=== PATIENT | male | born 1965 | race Caucasian/White ===

== ENCOUNTER 2020-04-12 12:31 | Outpatient (NON) | payer OTHER, SELFPAY ==
[2020-04-12 22:47] LABS: SARS-CoV-2 RNA PCR Positive
== END 2020-04-12 12:32 ==
PROVIDERS: PCP Family Medicine; Visit Provider Nurse Practitioner Family
DX: U07.1 COVID-19 (principal)
CPT/HCPCS: C9803; U0003; U0005

== ENCOUNTER 2024-08-19 01:39 | Day surgery (SDC) | payer OTHER, SELFPAY ==
[2024-08-11 13:04] VITALS: BMI 34.0
--- OUTSIDE RECORDS SUMMARY | 2024-08-19 01:42 | XMS_ITS | Data Portability ---
Author Organization [facility] [employer], Main Office Address [address] [place] [address] Assessment No assessment recorded. Plan of Treatment Reminders Order Date Submit Date Provider Last Modified By Organization Details Last Modified Time Details Appointments New Patient 15 2024 02:15P Steve Benoit MD Not available Not available Not available Lab rapid flu (A+B) 2024 025 [facility], [address] [place], [address], 05/17/2024 11:11:25 PSA, serum or plasma [address] - Outpatient Lab, [address] [place], [address], 04/26/2024 08:11:01 Referral otolaryng ologist referral - Please call patient to schedule an appointme nt. Thank you. 2024 025 GAYATHRI Benoit MD, [address], [place], [address], 06/24/2024 10:15:29 gastroent erologist referral - Please call patient to schedule an appointme nt. Thank you. [email or web address] [place] [address] Gastroenterol ogy, [address], [place], [address], 05/19/2024 09:03:34 dermatolo gist referral - Please call patient to schedule an appointme nt. Thank you. 01/21/ 2025 01/21/2 025 [email or web address] [facility], [address] [place] [address] , [place], [address], 05/17/2024 08:56:28 Procedures None recorded. Surgeries None recorded. Imaging None recorded. Medication Orders amoxicill in 875 mg-potass ium clavulana te 125 mg tablet 2024 025 [facility], [address], [place], [address], 06/24/2024 09:20:29 Medrol (Abdifatah) 4 mg tablets in a dose pack 2024 025 [facility], [address], [place], [address], 06/24/2024 09:20:29 amoxicill in 875 mg-potass ium clavulana te 125 mg tablet [address]/Pharmacy [facility]2713, [address], [place], [address], 06/24/2024 09:03:56 benzonata te 200 mg capsule [address]/Pharmacy [facility]2713, [address], [place], [address], 06/24/2024 09:03:53 Medrol (Abdifatah) 4 mg tablets in a dose pack [address]/Pharmacy [facility]2713, [address], [place], [address], 06/24/2024 09:03:47 amoxicill in 875 mg-potass ium clavulana te 125 mg tablet [address]/Pharmacy [facility]2713, [address], [place], [address], 06/24/2024 09:03:56 Patient TargetsNo targets recorded. Patient InstructionsNo instructions recorded. Reason for Referral Morgue Keeper Referral for S kin lesion Please call patient to schedule an appointment. Thank you. Referring Physician: Nitza López [facility], Encounter Date: 04/19/2024 Baseball Inspector Referral for Screening for malignant neoplasm of colon Please call patient to schedule an appointment. Thank you. Referring Physician: Nitza López [facility], Encounter Date: 04/19/2024 Parts Manager Referral fo r Lesion of tongue Please call patient to schedule an appointment. Thank you. Referring Physician: Nitza López [facility], Encounter Date: 06/24/2024 Results Created Date Observation Date Name Description Value Unit Range Abnormal Flag Note LastModifiedBy Organization Detail LastModifiedTime 05/20/1905/20/2022 TSH thyroid-stim ulating hormone 0.696 uIU/m L 0.465- 4.680 Not Available [facility] (Lab) [address] [place], [address], 05/20/2022 14:25:43 05/20/1905/20/2022 PSA, TOTAL PSA, total 0.36 NG/mL 0.00-4 .00 Not Available [facility] (Lab) [address] [place], [address], 05/20/2022 14:25:42 05/20/1905/20/2022 LIPID PANEL cholesterol 187 mg/dL 140-19 9 NIH RANDOLPH NSUS RECOM MENDA TION FOR TOMY STERO L: ADULT CHILD LOW RISK: <200 <170 BORDE RLINE : <200- 239 ----- HIGH RISK: >240 >200 Not Available [facility] (Lab) [address] [place], [address], 05/20/2022 13:49:26 05/20/1905/20/2022 LIPID PANEL triglyceride s 148 mg/dL 0-150 NIH RANDOLPH NSUS REPOR T RECOM MENDA TION FOR TRIGL YCERI CHEN: ADULT CHILD LOW RISK: <150 ----- BODER LINE: 150-1 99 ----- HIGH RISK: >200 ----- Not Available [facility] (Lab) [address] [place], [address], 05/20/2022 13:49:26 05/20/19 23 05/20/2022 LIPID PANEL HDL cholesterol 47 mg/dL 40- Not Available [facility] (Lab) [address] [place], [address], 05/20/2022 13:49:26 05/20/1905/20/2022 LIPID PANEL LDL cholesterol, calculated 110 mg/dL 0-130 NIH RANDOLPH NSUS REPOR T RECOM MENDA TIONS FOR LDL: ADULT CHILD LOW RISK <130 <110 (OPTI MAL LDL) <100 ----- MICHELE RLINE : 130-1 59 ----- HIGH RISK: >160 >130 A TRIGL YCERI DE RESUL T >400 INVAL IDATE S THE CALCU LATIO N FOR LDL FRACT IONAT ION - THE LDL RESUL T WILL NOT BE REPOR CONRAD. Not Available [facility] (Lab) [address] [place], [address], 05/20/2022 13:49:26 05/17/19 25 05/17/2024 rapid flu (A+B) Flu A negati ve Not Available [address], [address], 05/17/2024 10:07:55 05/17/19 25 05/17/2024 rapid flu (A+B) Flu B negati ve Not Available [address], [address], 05/17/2024 10:07:55 Result Notes None recorded. Problems Name Problem SNOMED Code Status Onset Date Resolution Date Notes Provider Name and Address Organization Details Recorded Time Acute sinusitis 75002675 Completed 04/19/[address], [place], [address] , [employer] 5 08:57:19 Pain in throat 229339155 Active Not Available [facility] 3 08:22:23 Steatotic liver disease 361559200 Active 2019 Not Available [employer] 3 08:22:24 Fluid level behind tympanic membrane Completed 04/19/2024 ARIANNA Gao [address], [address], [place], [address] , [employer] 5 08:57:35 Headache 60885101 Completed 04/19/2024 ARIANNA Gao [address], [address], [place], [address] , [employer] 5 08:58:28 Gastroente ritis 41017970 Completed 04/19/2024 ARIANNA Gao [address], [address], [place], [address] , [employer] 5 08:57:40 Change in voice 389291263 Completed 202104/19/2024 ARIANNA Gao [address], [address], [place], [address] , [employer] 5 08:57:27 Pruritic disorder 336784209 Active 2019 Not Available [employer] 3 08:22:24 Syncope and collapse 402688537 Active Not Available [employer] 3 08:22:24 Bronchitis 18374016 Completed 202104/19/[address], [place], [address] , [employer] 5 08:57:23 Depressive disorder 18924305 Active Not Available [employer] 3 08:22:24 Sinusitis 33882546 Completed 04/19/[address], [place], [address] , [employer] [facility] [facility] 5 08:59:01 Fever 630176716 Completed 04/19/[address], [place], [address] , [employer] [facility] 5 08:58:22 Obesity 187601021 Active 2021 Not Available [facility] 3 08:22:25 Cough 31451816 Completed 04/19/[address], [place], [address] , [employer] [facility] 5 10:07:52 Upper respirator y infection 91695904 Completed 04/19/[address], [place], [address] , [employer] [facility] 5 08:58:59 Posterior rhinorrhea 06109175 Active Not Available [facility] 3 08:22:25 Fatigue 74910535 Completed 04/19/[address], [place], [address] , [employer] [facility] 5 08:58:17 Acute bacterial sinusitis 22112856 Active [address], [place], [address] , [employer] [facility] 5 08:53:08 Skin lesion 08848311 Active [address], [place], [address] , [facility] 5 08:54:57 Cough 76582637 Active 2024 ARIANNA Gao [address], [address], [place], [address] , [facility] [employer] [facility] [employer] [facility] 5 10:07:52 Viral upper respirator y tract infection 619794746 Active 2024 ARIANNA Gao [address] [facility], [address], [place], [address] , [facility] [employer] [facility] 5 10:08:06 Acute left otitis media 773195307 Active 2024 ARIANNA Gao [address] [facility], [address], [place], [address] , [facility] [employer] [facility] 5 10:08:43 Lesion of tongue 081172272 Active 2024 ARIANNA Gao [address] [facility], [place] [address], [place], [address] , [facility] [employer] [facility] 5 09:25:01 Essential hypertensi on 99481528 Active 2024 ARIANNA Gao [address] [facility], [place] [address], [place], [address] , [facility] [employer] [facility] 5 09:28:27 Problem Notes None recorded. Medical Equipment None Reported. Allergies No known drug allergies Medications Name Sig Start Date Stop Date Status Note LastModified by Organization Details LastModified Time cyclobenzap rine 10 mg tablet Take 1 tablet 3 times a day by oral route. active Not Available Not Available No t Available prednisone 10 mg tablet Take 1 tablet every day by oral route as directed for 7 days. active Not Available Not Available No t Available ipratropium 0.5 mg-albutero l 3 mg (2.5 mg base)/3 mL nebulizatio n soln Inhale 3 mL 4 times a day by nebulizat ion route as needed for 5 days. active Not Available Not Available No t Available azithromyci n 250 mg tablet TAKE 2 TABLETS BY MOUTH TODAY, THEN TAKE 1 TABLET DAILY FOR 4 DAYS 07/31 completed Not Available Not Available Not Available benzonatate 200 mg capsule TAKE 1 CAPSULE BY MOUTH EVERY 8 HOURS NEEDED FOR 7 DAYS 06/24 completed Not Available Not Available Not Available Celestone Soluspan 6 mg/mL suspension for injection active nd#: 0517- 0720- 01 Not Available Not Available Not Available Pyridium 200 mg tablet Take 1 tablet 3 times a day by oral route. 03/02 completed Not Available Not Available Not Available sulfamethox azole 800 mg-trimetho prim 160 mg tablet TAKE 1 TABLET BY MOUTH EVERY 12 HOURS 02/26 completed Not Available Not Available Not Available hydrocodone 10 mg-acetamin ophen 325 mg tablet TAKE 1 TABLET BY MOUTH EVERY 4 HOURS 03/02 completed Not Available Not Available Not Available ondansetron 8 mg disintegrat ing tablet DISSOLVE 1 T ON THE TONGUE Q 8 H PRN FOR 2 DAYS 07/05 completed Not Available Not Available Not Available amoxicillin 875 mg tablet Take 1 tablet every 12 hours by oral route for 10 days. active Not Available Not Available No t Available benzonatate 100 mg capsule Take 1 capsule every 4-6 hours by oral route as directed for 15 days. 08/18 completed Not Available Not Available Not Available cyanocobala min (vit B-12) 1,000 mcg/mL injection solution Inject 1 mL every month by intramusc ular route[facility]#: [id number]- 25 Not Available Not Available Not Available oseltamivir 75 mg capsule Take 1 capsule every day by oral route for 7 days. 11/02 completed Not Available Not Available Not Available diclofenac sodium 75 mg tablet,arely yed release Take 1 tablet twice a day by oral route. active Not Available Not Available No t Available hydroxyzine HCl 25 mg tablet TAKE 1 TABLET BY MOUTH EVERY 6 TO 8 HOURS NEEDED FOR ITCHING 07/31 completed Not Available Not Available Not Available ceftriaxone 500 mg solution for injection active ndc#: 0409- 7338- 01 Not Available Not Available Not Available levofloxaci n 500 mg tablet TAKE 1 TABLET BY MOUTH EVERY DAY 02/10 completed Not Available Not Available Not Available methylpredn isolone 4 mg tablets in a dose pack TAKE 6 TABLETS ON DAY 1 DIRECTED ON PACKAGE AND DECREASE BY 1 TAB EACH DAY FOR A TOTAL OF 6 DAYS active Not Available Not Available No t Available clobetasol 0.05 % scalp solution APPLY TO THE AFFECTED SCALP AREA BY TOPICAL ROUTE 2 TIMES PER DAY IN THE MORNING AND EVENING 06/14 completed Not Available Not Available Not Available fluticasone propionate 50 mcg/actuati on nasal spray,suspe nsion USE 1 SPRAY IN EACH NOSTRIL DAILY 10/12 completed Not Available Not Available Not Available amoxicillin 875 mg-potassiu m clavulanate 125 mg tablet TAKE 1 TABLET BY MOUTH EVERY 12 HOURS FOR 10 DAYS active Not Available Not Available No t Available amoxicillin 500 mg-potassiu m clavulanate 125 mg tablet TAKE 1 TABLET BY MOUTH TWICE A DAY FOR 10 DAYS 07/31 completed Not Available Not Available Not Available neomycin 3.5 mg/g-polymy heather B 10,000 unit/g-dexa meth 0.1 % eye oint APPLY TO AFFECTED EYE BID FOR 10 DAYS UTD 08/18 completed Not Available Not Available Not Available escitalopra m 10 mg tablet TK ONE T PO QD 07/05 completed Not Available Not Available Not Available Lexapro 20 mg tablet Take 1 tablet every day by oral route for 30 days. 02/20 completed Not Available Not Available Not Available Sudafed 12 hour 02/26 completed OTC Not Available Not Available Not Available Mucinex 02/26 completed OTC Not Available Not Available Not Available ProAir HFA 90 mcg/actuati on aerosol inhaler Inhale 2 puffs every 4 hours by inhalatio n route as needed. active Not Available Not Available No t Available Suprep Bowel Prep Kit 17.5 gram-3.13 gram-1.6 gram oral solution 10/12 completed Not Available Not Available Not Available [facility] 24 hr 02/26 completed OTC Not Available Not Available Not Available Fluvirin 3871-8091 45 mcg (15 mcg x 3)/0.5 mL intramuscul ar suspension active Not Available Not Available N ot Available Vitals Date Recorded Body mass index (BMI) Body height Oxygen saturation Oxygen saturation in Arterial blood by Pulse oximetry Heart rate Respiratory rate Body temperature Body weight Systolic blood pressure Diastolic blood pressure Provider Name and Address Organization Details Last Updated DateTime 3 32.6 kg/m2 182.88 cm 97 % 97 % 69 /min 16 /min 96.7 [degF] 229135. 96 g 139 mm[Hg] 97 mm[Hg] Not Available [facility] 3 08:21:35 Date Recorded Body weight Body mass index (BMI) Body height Body temperature Heart rate Respiratory rate Oxygen saturation Oxygen saturation in Arterial blood by Pulse oximetry Systolic blood pressure Diastolic blood pressure Provider Name and Address Organization Details Last Updated DateTime 5 842517. 81 g 35.4 kg/m2 180.34 cm 97.1 [degF] 69 /min 20 /min 99 % 99 % 140 mm[Hg] 78 mm[Hg] Maribel Ang RN [facility] [employer] [facility] 5 08:44:23 Date Recorded Body height Body mass index (BMI) Body weight Body temperature Heart rate Respiratory rate Oxygen saturation Oxygen saturation in Arterial blood by Pulse oximetry Provider Name and Address Organization Details Last Updated DateTime 5 180.34 cm 35.6 kg/m2 426353. 1 g 97.2 [degF] 91 /min 20 /min 97 % 97 % Maribel Ang RN [facility] [employer] [facility] 5 09:54:00 Date Recorded Body height Body mass index (BMI) Body weight Body temperature Heart rate Respiratory rate Oxygen saturation Oxygen saturation in Arterial blood by Pulse oximetry Systolic blood pressure Diastolic blood pressure Provider Name and Address Organization Details Last Updated DateTime 5 180.34 cm 36.4 kg/m2 653410. 31 g 97.2 [degF] 78 /min 20 /min 98 % 98 % 174 mm[Hg] 80 mm[Hg] Maribel Ang RN [facility] [employer] [facility] 5 09:07:42 Social History Question Answer Notes LastModified by Organizat ion Details LastModified Time Tobacco Smoking Status Former Smoker Not Available [facility] 05/28/2022 08:18:12 Do You Have An Advance Directive? No Information not available 04/19/2024 Is Blood Transfusion Acceptable In An Emergency? Yes Information not available 04/19/2024 What Is Your Level Of Caffeine Consumption? Moderate [id number] Information not available 05/28/2022 What Is Your Code Status? Full Code Information not available 04/19/2024 In The 14 Days Before Symptom Onset, Have You Had Close Contact With A Laboratory-confi rmed COVID-19 While That Case Was Ill? No [id number] Information not available 05/28/2022 In The 14 Days Before Symptom Onset, Have You Had Close Contact With A Person Who Is Under Investigation For COVID-19 While That Person Was Ill? No [id number] Information not available 05/28/2022 What Type Of Diet Are You Following? REGULAR [id number].[id number] [id number] Information not available 05/28/2022 What Is The Highest Grade Or Level Of School You Have Completed Or The Highest Degree You Have Received? HK88400-0 [id number] Information not available 05/28/2022 Have There Been Any Changes To Your Family Or Social Situation? No [id number] Information not available 05/28/2022 When Did You Quit Smoking? 16+yearssincelastc igarette [id number].[id number] Information not available 05/28/2022 Are There Any Guns Present In Your Home? No [id number].[id number] Information not available 05/28/2022 Where Do You Live? [facility] [id number].54941 [id number] Information not available 05/28/2022 Do You Have A Medical Power Of Senior Escrow Officer? No Information not available 04/19/2024 How Many Children Do You Have? 1 Information not available 04/19/2024 Do You Have Any Pets? Yes [id number] Information not available 05/28/2022 What Is Your Relationship Status? MIGRATION.[id number] Information not available 05/28/2022 Do You Use Your Seat Belt Or Car Seat Routinely? Yes Information not available 04/19/2024 Do You Have Smoke And Carbon Monoxide Detectors In Your Home? Yes [id number].78143 [id number] Information not available 05/28/2022 Are There Any Smokers In Your House? No MIGRATION.70670 [id number] Information not available 05/28/2022 Do You Participate In Social Media? Yes Information not available 04/19/2024 Do You Use Sunscreen Routinely? Yes MIGRATION.27586 [id number] Information not available 05/28/2022 Have You Recently Traveled Abroad? No Information not available 05/17/2024 Do You Have Any Dietary Restrictions? No MIGRATION.49735 [id number] Information not available 05/28/2022 Sex: Male Functional Status Question Answer Note LastModified by Organizat ion Details LastModified Time What is your level of alcohol consumption? 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 Occasional [id number] Information not available 05/28/2022 Mental Status Question Answer Note LastModified by Organizat ion Details LastModified Time Do you feel stressed (tense, restless, nervous, or anxious, or unable to sleep at night)? ML0302-0 [id number] Information not available 05/28/2022 Family History Relationship Description Onset Age of this Age Resolved Age Notes LastModified by Organization Details LastModified Time Father No current problems or disability Not available 04/19 08:44:34 Mother No current problems or disability Not available 04/19 08:44:34 Medical History Condition Response CANCER: SPECIFY Y ALLERGIES/HAYFEVER Y Immunizations Vaccine Type Date Status Note Provider Nam e and Address Organization Details Recorded Time Influenza, split virus, trivalent, preservative 3 completed Not Available [facility] 05/28/2022 08:26:37 DTaP, unspecified formulation 1 completed Not Available [facility] 05/28/2022 08:26:37 MMR 5 completed Not Available [facility] 05/28/2022 08:26:37 Tdap 3 completed Not Available [facility] 05/28/2022 08:26:37 Influenza, split virus, quadrivalent, PF 9 completed Not Available [facility] 05/28/2022 08:26:37 Past Encounters Encounter ID Performer Location Encounter Start Date Encounter Closed Date Diagnosis/Indication Diagnosis SNOMED-CT Code Diagnosis ICD10 Code Diagnosis Note [id number] Perry Ugalde MD [facility] [address] [address] 07/31/2021 00:00:00 07/31/2021 14:01:05 [id number] Perry Ugalde MD [address] [address] 03/10/2022 00:00:00 03/10/2022 10:55:01 [id number] Perry Ugalde MD [address] [address] 04/15/2022 00:00:00 04/15/2022 08:41:10 [id number] Perry Ugalde MD [address] [address] 05/20/2022 00:00:00 05/20/2022 08:32:24 [id number] Perry Ugalde MD [address] [address] 04/19/2024 08:35:36 04/19/2024 09:04:35 Acute bacterial sinusitis 04257862 J01.90 x 2 months Skin lesion 79541102 L98 .9 2x1 cm, scabbing with erythema. Present x 2-3 years Adult [facility] th examination 729195153 Z00.00 Patient is overall healthy.He alth maintenanc e reviewedDi scussed diet/exerc isePatient questions answered Screening for malignant neoplasm of prostate 539456685 Z12.5 Screening for malignant neoplasm of colon 188450683 Z12.11 [id number] Perry Ugalde MD [address] [address] 05/03/2024 08:25:14 05/12/2024 16:09:59 [id number] Perry Ugalde MD [address] [address] 05/17/2024 09:40:50 05/17/2024 10:11:31 Cough 03564753 R05.9 Viral uppe r respiratory tract infection 966671006 J06.9 advised to continue antihistam ine, nasal spray, ibuprofen, tylenol, Mucinex DM, increase water intake Acute left otitis media 074997383 H66.92 [id number] Perry Ugalde MD [facility] [address] [place] [address] 06/24/2024 08:53:56 06/24/2024 09:37:45 Acute bacterial sinusitis 41803163 J01.90 x 2 months, resolved then returned Lesion of tongue 5474467 05 K14.9 small, had recent basal cell carcinoma removed from his right cheek, fears they are related Health Concerns Section Related Observation LastModified by Organization Detai ls LastModified Time None Recorded Concern Status LastModified by Organization Details LastModified Time None Recorded Advance Directives Directive N: Payers Encounter Date Sequence Insurance Name Policy Number Policy Graves Covered Member ID Graves Member ID Guarantor Name 04/19/2024 1 [place] [id number] Rosette E Stamper [id number] Manny Rosales Stamper 05/03/[address] [facility] [id number] Rosette E Stamper [id number] Manny L Stamper 05/17/2024 [address] [place] [id number] Rosette E Stamper [id number] Manny L Stamper 06/24/[address] [facility] [id number] Rosette E Stamper [id number] Manny L Stamper Notes Date Note Type Note Provider Name and Address Organization Details Recorded Time 04/19/2024 text/html Manny Logan i s a 58 year old male patient here today for an wellness visit He is overall healthy. He has concerns with a possible sinus infection. Symptoms began 2 months ago. States he does utilize flonase and Zyrtec.Does all believe he is allergic to his cats.Does admits to fevers over this weekend, now having a bad headache. Has concerns with a lesion on the right side of his face, below his ear, 2x1 cm Has a history of prostates surgery green-light procedure Had annual labs through work, will bring us the results Flu shot: declinesCOVID vaccines:x1 dap: 05/20/2022olonosco py: 2019, polyps found, did at [facility] ordered today Nitza López, ARIANNA [address] [facility], [facility] [address], [place], [address], [facility] [employer] 04/19/2024 09:45:06 05/17/2024 text/html Manny Logan i s a 58 year old male patient here today for a sick visit Sick x 4 days, last night was the worse. Fever, headache, body aches, cough, ROSETTA ear pain, sinus congestion, bloody nasal dischargeHas been taking Ibuprofen, Mucinex and sudafed. ARIANNA Gao [address] [facility], [address], [place], [address], [employer] 05/17/2024 10:13:41 06/24/2024 text/html Manny Logan i s a 58 year old male patient here today for a sick visit Sick x 1 month, Fever, headache, body aches, cough, ROSETTA ear pain, sinus congestion, bloody nasal dischargeHas been taking Ibuprofen, Mucinex and sudafed.Completed 7 day augmentin and medrol dose pack and felt this was effective but symptoms returned after completion. Concerns with a lesion on the right side of his tongue. Notes that he had a basal cell carcinoma removed from his right cheek and he is worried these are connected. [facility] [address] [facility] [address], [place], [address], [place] 06/24/2024 09:36:28
--- OUTSIDE RECORDS SUMMARY | 2024-08-19 01:42 | XMS_ITS | CONTINUITY OF CARE DOCUMENT ---
Author Name angelic joejaime Address Unknown Organization [facility] Address [address] [address] [place] [address] Phone [phone] Care Team Providers Care Truck Rental Clerk Name Role Phone Demetri Odom MD Unavailable [phone] LICO BAUTISTA MD Unavailable [phone] LICO BAUTISTA MD Unavailable PROBLEMS Condition Status Date Provider Notes HYPERTRIGLYCERIDEMIA active Demetri Odom MD MITRAL VALVE PROLAPSE active Demetri Ennis CHEST PAIN-TYPE TO BE DETERMINED active ? Elder Odom MD ENCOUNTERS Date Type Provider Location Encounter Diag nosis - In-person encounter Office Visit Demetri Odom MD [facility] HYPERTRIGLYCERIDEMIAMITRAL VALVE PROLAPSECHEST PAIN-TYPE TO BE DETERMINED VITAL SIGNS Date Observation Value Provider blood pressure, diastolic 84 mm[Hg] Fer Shah RN blood pressure, systolic 123 mm[Hg] Olu Shah RN pulse rate 81 /min Olu Shah RN oxygen saturation, oximetry 98 % Olu Shah RN respiratory rate E&M 16 /min Olu sorensen RN weight E&M 213 [lb_av] Olu Shah RN ALLERGIES No Known Drug Allergies HISTORY OF MEDICATION USE Medication Status Instructions Dates Provider Indications Com ments DEXILANT 60 MG ORAL CAPSULE DELAYED RELEASE active 1 tab daily Neema Montiel SOCIAL HISTORY Date Observation Value Provider social history E&M Marital Statu s: L emilia with family/friends E thnicity: Olu Shah RN social history reviewed E&M reviewed Olu Shah RN physical exercise, f requency, days per week yes [employer] caffeine use, averag e drinks per day no [employer] alcohol use, average drinks per day none [employer] smoking status Non-smoker [employer] MENTAL STATUS Date Observation Value Provider assessment of judgme nt and insight E&M Alert and oriented to time, place and person. Mood and affect are normal. Olu Shah RN INSURANCE PROVIDERS Payer name Policy type / Coverage type [place] [employer] democr[employer] ID [facility] [id number] TREATMENT PLAN Date Name Performer chest pain Demetri Odom MD chest pain : B P today: 123/84 Prior BP: / () Demetri Odom MD Date Name Stress Test - Nuclea r Complete Echo THYROID PANEL WITH T SH, 3RD GENERATION LIPID PANEL COMPREHENSIVE METABO LIC PANEL W/EGFR HISTORY OF PROCEDURES Procedure Date Procedure Name Provider Procedure Notes S tatus EKG Demetri Odom MD completed
[2024-08-19 07:46] VITALS: BP 139/79; PULSE 77; RESP 19; TEMP 36.1; O2SAT 100; BMI 33.5
[2024-08-19] MEDS: LACTATED RINGERS 1,000 ML 150 ML IV CONT (07:55)
--- NOTE | 2024-08-19 08:28 | P.PNAN_ITS ---
Anes - Initial Pre Proc Eval Procedure: Operation Date: 08/19/24 09:00 Proposed Procedures p Screening Colonoscopy - Fredi Lewis MD Date/Time: 08/19/24 08:28 Surgeon: Fredi Lewis MD Pre Op Diagnosis: screening colon Patient Data Age: 58 Gender: M Height: 1.83 m Weight: 112 kg Last Vital Signs Temp 36.1 C L 08/19/24 07:46 Pulse 77 08/19/24 07:46 Resp 19 08/19/24 07:46 BP 139/79 08/19/24 07:46 Pulse Ox 100 08/19/24 07:46 O2 Del Method Room Air 08/19/24 07:46 Allergies Allergy/AdvReac Type Severity Reaction Status Date / Time No Known Allergies Allergy Unknown Verified 08/19/24 07:45 Home Medications ?Medication ?Instructions ?Recorded ?Confirmed ?Type fexofenadine 60 mg tablet (Arin 60 mg PO DAILY 08/11/24 08/19/24 History Allergy) Patient hx anesthesia problems: none Family hx anesthesia problems: none Results Review: All pre-operative results and documents have been reviewed as part of the pre- operative evaluation. [facility] Social History Social History Smoking status: Former smoker Alcohol intake: current Drinks per week: 2 Substance use: never Substance use type: does not use Living arrangements: with family Spiritual care concerns: No Anes - Eval Final PreProcedure Day of Procedure 08/19/24 08:28 Patient weight: obese Heart: regular rate and rhythm Lungs: clear to auscultation Airway: Mallampati scale class II Neurological: alert and oriented Last oral intake: >/= 8 hours ASA classification: II Emergent: no Anesthetic plan: proceed Anesthesia type and monitoring: general GIVS and standard monitoring Results Review: All pre-operative results and documents have been reviewed as part of the pre- operative evaluation. Informed Consent: The patient's anesthetic plan and its attendant risks and benefits were discussed with the patient/family/POA. Questions were solicited and answers provided to the satisfaction of the patient/family/POA.
--- NOTE | 2024-08-19 08:53 | P.HP_ITS ---
H&P: HPI History of Present Illness Date/Time: 08/19/24 08:53 Chief Complaint: History of colon polyps Narrative: The patient has a history of colonic polyps, the last colonoscopy was approximately 7 years ago. Review of Systems Review of Systems: All systems reviewed & are unremarkable except as noted in HPI and below [facility] Social History Social History Smoking status: Former smoker Alcohol intake: current Drinks per week: 2 Substance use: never Substance use type: does not use Living arrangements: with family Spiritual care concerns: No Meds Home Medications and Allergies Home Medications ?Medication ?Instructions ?Recorded ?Confirmed ?Type fexofenadine 60 mg tablet (Arin 60 mg PO DAILY 08/11/24 08/19/24 History Allergy) Allergies Allergy/AdvReac Type Severity Reaction Status Date / Time No Known Allergies Allergy Unknown Verified 08/19/24 07:45 Vital Signs Vital Signs - 24 hr 08/19/24 07:46 Temperature 96.9 F L Pulse Rate 77 Respiratory Rate 19 Blood Pressure 139/79 Pulse Oximetry 100 Oxygen Delivery Room Air Exam Const: General: cooperative and healthy appearing Resp: Effort & Inspection: normal respiratory effort and able to speak in complete sentences Auscultation: clear to auscultation bilaterally Cardio: Rate: regular rate Rhythm: regular rhythm GI: Inspection: normal to inspection GI Palp: No No hepatosplenomegaly present Auscultation: normal bowel sounds Rectal Exam: deferred Skin: General skin exam: normal color Psych: Appearance: grossly normal Mental Status: mental status grossly normal Assessment and Plan Assessment and plan (1) History of colonic polyps: Code(s): Z86.0100 - Personal history of colon polyps, unspecified Status: Acute Assessment and Plan: The patient is deemed a good candidate for the procedure. Consent signed. Will proceed.
[2024-08-19] MEDS: SIMETHICONE ORAL SUSPENSION 20 MG/0.3 ML 30 ML BOTTLE 0.6 ML IRRIGATION (09:11)
[2024-08-19 09:27] VITALS: BP 109/71; PULSE 68; RESP 17; O2SAT 100
[2024-08-19 09:37] VITALS: BP 116/65; PULSE 62; RESP 20; O2SAT 100
== END 2024-08-19 09:53 | disposition home or self-care (01) ==
PROVIDERS: Visit Provider Internal Medicine Gastroenterology
PROC: 0DJD8ZZ Inspection of Lower Intestinal Tract, Via Natural or Artificial Opening Endoscopic (ICD-10-PCS; CPT 45378; principal; 2024-08-19 09:00)
DX: Z12.11 Encounter for screening for malignant neoplasm of colon (principal); D12.2 Benign neoplasm of ascending colon; D12.5 Benign neoplasm of sigmoid colon; K64.8 Other hemorrhoids; K57.30 Diverticulosis of large intestine without perforation or abscess without bleeding; E66.9 Obesity, unspecified; Z68.33 Body mass index [BMI] 33.0-33.9, adult; Z87.891 Personal history of nicotine dependence
CPT/HCPCS: 45385; 88305; J2704; J7120

== ENCOUNTER 2024-12-12 09:51 | Emergency (ER) | payer OTHER, SELFPAY ==
[2024-12-12 10:00] VITALS: BP 144/78; PULSE 94; RESP 16; TEMP 36.6; O2SAT 100
--- NOTE | 2024-12-12 10:23 | ED_ITS ---
HPI - URI/Sore Throat General Chief Complaint: Upper Respiratory Infection Stated Complaint: Sinus Infection Time Seen by Provider: 12/12/24 10:23 Source: patient Mode of arrival: ambulatory Limitations: no limitations History of Present Illness HPI Narrative: 59-year-old male presents with complaint of sinus congestion, postnasal drainage, sinus pressure and headaches for the past 7-8 days. Patient reports cough, chest congestion for the past 2 days. Woke up this morning with chills and clammy. Patient is taking pseudoephedrine and Mucinex as directed on packaging. Reports that nasal drainage has changed from yellow to green. All systems reviewed and negative except as noted above. Related Data Home Medications ?Medication ?Instructions ?Recorded ?Confirmed ?Last Taken ?Type fexofenadine 60 mg tablet (Arin 60 mg PO DAILY 07/2812/12/24 08/18/24 History Allergy) Allergies Allergy/AdvReac Type Severity Reaction Status Date / Time No Known Allergies Allergy Unknown Verified 12/12/24 10:01 [facility] Social History Social History Smoking status: Former smoker Alcohol intake: current Drinks per week: 2 Substance use: never Substance use type: does not use Living arrangements: with family Spiritual care concerns: No Comments At time of signature, agree with nursing past medical, surgical, social and family history. There is no relevant family history pertinent to the presenting complaint. Exam Narrative: GENERAL: This is a well-nourished, well-developed patient, in no apparent distress. HEAD: normocephalic, atraumatic. EYES: PERRL. Sclera clear/white. Vision is grossly intact. EARS: External ears normal, auditory canals clear and without drainage, Fluid bilateral TMs, right TM is retracted. Hearing grossly intact. NOSE: External nose normal with Purulent nasal drainage, erythema and swelling to bilateral nares. Maxillary sinus tenderness on palpation. THROAT: Mucous membranes moist, Erythematous with postnasal drainage. No sw elling or exudates. NECK: Neck supple, non-tender without lymphadenopathy, masses or thyromegaly. CARDIOVASCULAR: Regular rate and rhythm without murmurs, gallops, or rubs. RESPIRATORY: Clear to auscultation. Breath sounds equal bilaterally. No wheezes, rales, or rhonchi. SKIN: warm, Dry, intact with no suspicious lesions or rash, good texture and turgor. NEURO: awake, alert, and oriented to person, place and time. There were no obvious focal neurologic abnormalities. EXTREMITIES: No joint tenderness, effusion, or edema noted. Course Course Level of Care: Express Care Visit Vital Signs Vital signs: Vital Signs Temperature 36.6 C 12/12/24 10:00 Pulse Rate 94 12/12/24 10:00 Respiratory Rate 16 12/12/24 10:00 Blood Pressure 144/78 H 12/12/24 10:00 Pulse Oximetry 100 12/12/24 10:00 Oxygen Delivery Room Air 12/12/24 10:00 Temperature 36.6 C 12/12/24 10:00 Pulse Rate 94 12/12/24 10:00 Respiratory Rate 16 12/12/24 10:00 Blood Pressure 144/78 H 12/12/24 10:00 Pulse Oximetry 100 12/12/24 10:00 Oxygen Delivery Room Air 12/12/24 10:00 Reviewed MDM - URI/Sore Throat MDM Narrative Medical decision making narrative: will treat patient with antibiotic for bacterial sinusitis due to duration of symptoms and exam findings. Lungs are clear to auscultation. Recommend he continue Mucinex and pseudoephedrine. Also takes Arin and Flonase daily. Will follow up with primary care physician if not improving. Differential Diagnosis Differential diagnosis: Likely upper respiratory infection and sinusitis Discharge Plan Discharge Clinical Impression: Acute bacterial sinusitis Patient Disposition: Home Condition: Stable Instructions: Antibiotic Form, Rhinosinusitis (ED) Additional Instructions: take antibiotic as prescribed until gone. Continue [id number] Mucinex and pseudoephedrine as directed on packaging. Drink at least 64 oz of water a day. See your primary care physician if symptoms are not improving. Patient Language: Romanian Prescriptions: New amoxicillin-pot clavulanate 875-125 mg tablet 1 tablet PO Q12H 7 Days Qty: 14 0RF No Action fexofenadine [Arin Allergy] 60 mg tablet 60 mg PO DAILY Follow-up/Referrals: Maribel,Nitza Maxwell, [employer]PERVISOR [Primary Care Provider, Unknown] Time of Disposition: 10:27
== END 2024-12-12 10:30 | disposition home or self-care (01) ==
PROVIDERS: Emergency Provider Nurse Practitioner Family
DX: J01.90 Acute sinusitis, unspecified (principal); Z87.891 Personal history of nicotine dependence; I10 Essential (primary) hypertension; I34.1 Nonrheumatic mitral (valve) prolapse; N40.0 Benign prostatic hyperplasia without lower urinary tract symptoms; Z97.0 Presence of artificial eye
CPT/HCPCS: 99213; G0463